=== PATIENT | female | born 1985 | race Caucasian/White ===

== ENCOUNTER 2017-04-08 14:30 | Emergency (ER) | payer SELFPAY | END 2017-04-08 14:57 | disposition home or self-care (01) | LOC: ER 14:30 | DX: S39.012A Strain of muscle, fascia and tendon of lower back, initial encounter (principal); Z88.0 Allergy status to penicillin; Z88.1 Allergy status to other antibiotic agents; X58.XXXA Exposure to other specified factors, initial encounter | CPT/HCPCS: 96372; 99283; A9270-GY; J1885 ==